=== PATIENT | male | born 2000 | race Caucasian/White ===

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

== ENCOUNTER 2021-12-31 03:32 | Emergency (ER) | payer BC, OTHER ==
[2021-12-31] MEDS ORDERED: Sodium Chloride 0.9% 10 ML Syringe FLUSH PRN (03:50)
[2021-12-31] MEDS ORDERED: Naloxone 0.4 MG/ML SDV IVPUSH PRN (03:54)
[2021-12-31] MEDS ORDERED: Naloxone 0.4 MG/ML SDV ONE (03:56)
[2021-12-31] MEDS ORDERED: Sodium Chloride 0.9% 1,000 ML IV SCH (04:00)
[2021-12-31 04:06] LABS: ESTIMATED GFR 97 mL/min (>60)
[2021-12-31] MEDS ORDERED: Potassium Chloride 20 MEQ in Premix Bag 1 BAG IV ONE (04:09)
[2021-12-31] MEDS ORDERED: Naloxone 0.4 MG/ML SDV IVPUSH SCH (04:30)
[2021-12-31] MEDS ORDERED: Pantoprazole 40 MG Vial ONE (05:17)
[2021-12-31 05:27] VITALS: BP 123/83; PULSE 113
[2021-12-31 05:27] LABS: PO2 ARTERIAL,POC 105 mmHg (83-108)
[2021-12-31 07:37] LABS: ESTIMATED GFR 124 mL/min (>60)
[2021-12-31] MEDS ORDERED: Alum Hydroxide/Mag Hydroxide 15 ML, Lidocaine 2% 15 ML PO ONE ×2 (08:08)
[2021-12-31] MEDS ORDERED: Pantoprazole 40 MG Vial IVPUSH SCH (21:00)
== END 2021-12-31 09:20 | disposition home or self-care (01) ==
LOC: FB.ED 03:32
DX: R07.89 Other chest pain (principal); R41.0 Disorientation, unspecified; Z88.1 Allergy status to other antibiotic agents; Z88.7 Allergy status to serum and vaccine; Z88.0 Allergy status to penicillin
CPT/HCPCS: 36415; 51701; 70450; 71045; 80053; 80307; 82803; 83605; 84484; 85025; 85379; 86140; 93005; 96361; 96365; 96366; 96375; 99284; A9270; C9113; J2310; J3480; J7030

== ENCOUNTER 2022-01-20 14:34 | Emergency (ER) | payer BC ==
[2022-01-20] MEDS ORDERED: Ondansetron 4 MG Tab.DIS PO ONE (14:35)
[2022-01-20 15:13] VITALS: BP 124/87; PULSE 115
[2022-01-20] MEDS ORDERED: Azithromycin 500 MG Tab PO STA (15:41)
[2022-01-20] MEDS ORDERED: Ondansetron 4 MG Tab.DIS PO STA (15:41)
[2022-01-20] MEDS ORDERED: traMADol 50 MG Tab PO ONE (15:41)
[2022-01-20] MEDS ORDERED: Acetaminophen 500 MG Tab PO STA (15:43)
[2022-01-20 15:47] LABS: CORONAVIRUS COVID-19 NAA NEGATIVE (NEGATIVE)
[2022-01-20 16:28] LABS: ESTIMATED GFR 97 mL/min (>60)
[2022-01-20] MEDS ORDERED: Naproxen 500 MG Tab PO ONE (17:01)
== END 2022-01-20 17:20 | disposition home or self-care (01) ==
LOC: FB.ED 14:34
DX: R07.89 Other chest pain (principal); J02.0 Streptococcal pharyngitis; E66.9 Obesity, unspecified; Z68.37 Body mass index [BMI] 37.0-37.9, adult; Z88.1 Allergy status to other antibiotic agents; Z88.7 Allergy status to serum and vaccine; Z88.0 Allergy status to penicillin; Z79.899 Other long term (current) drug therapy; Z20.822 Contact with and (suspected) exposure to COVID-19
CPT/HCPCS: 0240U; 36415; 71045; 80053; 81001; 84484; 85025; 87651; 93005; 99284; A9270; Q0162

== ENCOUNTER 2024-09-10 16:31 | Emergency (ER) | payer OTHER, BC ==
[2024-09-10 17:29] LABS: BASOPHILS PERCENT AUTO 0.2 % (0.3-3.8); EOSINOPHILS PERCENT AUTO 0.2 % (0.1-6.8); HEMATOCRIT 44.8 % (38.3-50.1); HEMOGLOBIN 15.6 g/dL (12.9-17.7); LYMPHOCYTES ABSOLUTE AUTO 1.2 x10-3/uL (0.5-4.5); LYMPHOCYTES PERCENT AUTO 9.3 % (15.8-45.3); MEAN CORPUSCULAR HGB CONC 34.8 g/dL (28.7-35.3); MEAN CORPUSCULAR VOLUME 83.4 fL (80.8-98.7); MEAN PLATELET VOLUME 8.5 fL (6.7-11.0); MONOCYTES PERCENT AUTO 7.7 % (5.5-15.2); NEUTROPHILS ABSOLUTE AUTO 10.9 x10-3/uL (1.7-6.9); NEUTROPHILS PERCENT AUTO 82.6 % (40.3-71.8); PLATELET COUNT,PLT 299 x10(3)uL (117-477); RED BLOOD CELL COUNT 5.38 x10(6)uL (3.90-5.90); RED CELL DISTRIBUTION WIDTH 13.4 % (12.4-15.0); WHITE BLOOD CELL COUNT,WBC 13.2 x10-3/uL (3.2-10.1)
[2024-09-10 17:37] LABS: BLOOD UREA NITROGEN,BUN 15 mg/dL (7-18); BUN/CREATININE RATIO 13.6 (9-20); CALCIUM 9.6 mg/dL (8.6-10.2); CARBON DIOXIDE,CO2 25 mmol/L (21-32); CHLORIDE,CL 105 mmol/L (100-110); CREATININE 1.1 mg/dL (0.70-1.30); EST CRCL DRUG DOSING (CG) 102.66 mL/min; ESTIMATED GFR 96 mL/min (>60); GLUCOSE RANDOM 105 mg/dL (80-116); POTASSIUM,K 3.6 mmol/L (3.5-5.3); SODIUM,NA 141 mmol/L (135-145)
[2024-09-10 17:44] LABS: ALANINE AMINOTRANSFERASE,ALT 61 U/L (12-36); ALBUMIN 4.3 g/dL (3.5-5.2); ALKALINE PHOSPHATASE 84 IU/L (56-112); ASPARTATE AMNIOTRANSFERASE,AST 31 IU/L (5-25); BILIRUBIN TOTAL 0.6 mg/dL (0.1-1.3); PROTEIN TOTAL,TP 8.6 g/dL (6.0-8.0)
[2024-09-10 17:56] VITALS: BP 129/75; PULSE 79
== END 2024-09-10 18:10 | disposition home or self-care (01) ==
LOC: FB.ED 16:31
DX: S62.525A Nondisplaced fracture of distal phalanx of left thumb, initial encounter for closed fracture (principal); R07.89 Other chest pain; F17.200 Nicotine dependence, unspecified, uncomplicated; Z88.0 Allergy status to penicillin; Z88.1 Allergy status to other antibiotic agents; Z88.7 Allergy status to serum and vaccine; Z79.899 Other long term (current) drug therapy; W23.1XXA Caught, crushed, jammed, or pinched between stationary objects, initial encounter; Y99.0 Civilian activity done for income or pay
CPT/HCPCS: 36415; 73130-LT; 80053; 84484; 85025; 99285

== ENCOUNTER 2024-09-21 17:01 | Emergency (ER) | payer BC, OTHER ==
[2024-09-21] MEDS ORDERED: Azithromycin 250 MG Tab PO ONE (17:02)
[2024-09-21 18:24] VITALS: BP 114/69; PULSE 120
== END 2024-09-21 18:21 | disposition home or self-care (01) ==
LOC: FB.ED 17:01
DX: J02.0 Streptococcal pharyngitis (principal); E66.9 Obesity, unspecified; F17.200 Nicotine dependence, unspecified, uncomplicated; Z88.0 Allergy status to penicillin; Z88.7 Allergy status to serum and vaccine; Z88.1 Allergy status to other antibiotic agents
CPT/HCPCS: 87651; 99283; 99284; A9270-GY